=== PATIENT | female | born 1970 | race Two or more races ===

== ENCOUNTER 2024-07-21 08:23 | Inpatient (IN) | payer MEDICAID ==
[~2024-07-21] VITALS: Ht 162.6 cm; Wt 46.7 kg
[2024-07-21 09:23] LABS: COVID AG,FIA SOURCE NPH
[2024-07-21 09:41] LABS: SARS-COV2 (COVID) ANTIGEN,FIA Negative (Negative)
[2024-07-21] MEDS ORDERED: GuaiFENesin/D-METHORPHAN [SUGAR-FREE] 200-20MG/10 ML SYRUP UDCUP PO PRN (11:15)
[2024-07-21] MEDS ORDERED: HydrOXYzine PAMOATE 50 MG CAPSULE PO PRN (11:15)
[2024-07-21] MEDS ORDERED: LOPERAMIDE HCL 2 MG CAPSULE PO PRN (11:15)
[2024-07-21] MEDS ORDERED: MAG HYDROX/ALUMINUM HYD/SIMETH ES 30 ML SUSPENSION UDCUP PO PRN (11:15)
[2024-07-21] MEDS ORDERED: PROMETHAZINE HCL 25 MG TABLET PO PRN (11:15)
[2024-07-21] MEDS ORDERED: MAGNESIUM HYDROXIDE SUSPENSION 30 ML UDCUP PO PRN (11:15)
[2024-07-21] MEDS: DiphenhydrAMINE HCL 50 MG/ML VIAL IM ONE (11:29)
[2024-07-21] MEDS: HALOPERIDOL LACTATE 5 MG/ML VIAL IM ONE (11:29)
[2024-07-21] MEDS: LORazepam 2 MG/ML VIAL IM ONE (11:29)
[2024-07-21 13:00] LABS: BASOPHILS % (AUTO) 0.4 % (0.0-2.0); EOSINOPHILS % (AUTO) 2.2 % (1.0-6.0); HEMATOCRIT 34.4 % (36-46); HEMOGLOBIN 11.4 g/dL (12.0-16.0); LYMPHOCYTES # (AUTO) 1.6 K/uL (1.0-4.8); LYMPHOCYTES % (AUTO) 33.8 % (22.0-44.0); MEAN CORPUSCULAR HEMOGLOBIN 30.8 pg (26.0-34.0); MEAN CORPUSCULAR HGB CONC 33.2 G/dL (31.0-37.0); MEAN CORPUSCULAR VOLUME 93 fL (80-100); MONOCYTES # (AUTO) 0.3 K/uL (0.1-1.0); NEUTROPHILS # (AUTO) 2.8 K/uL (1.8-7.7); NEUTROPHILS % (AUTO) 57.6 % (40.0-70.0); PLATELET COUNT (AUTO) 228 K/uL (150-450); RED BLOOD CELL COUNT(AUTO) 3.71 MIL/uL (4.00-5.20); RED CELL DISTRIBUTION WIDTH 13.6 % (11.5-14.5); WHITE BLOOD COUNT (AUTO) 4.8 K/uL (4.5-11.0)
[2024-07-21 13:15] LABS: ALCOHOL, BLOOD (SERUM) < 3 mg/dL (0-10)
[2024-07-21 13:30] LABS: ANION GAP 5 mmol/L (8-16); CALCIUM, TOTAL 8.5 mg/dL (8.8-10.5); CARBON DIOXIDE 30 mmol/L (22-29); CHLORIDE 105 mmol/L (98-107); CREATININE 0.65 mg/dL (0.60-1.30); GLOMERULAR FILTR. RATE CALC > 60 mL/min (>60); SODIUM SERUM 140 mmol/L (136-145); UREA NITROGEN, BLOOD 12 mg/dL (7-18)
[2024-07-21 13:41] LABS: HCG,QUANTITATIVE 1 mIU/mL (0-6)
[2024-07-21 13:45] LABS: APPEARANCE,URINE HAZY (CLEAR); BILIRUBIN,URINE NEGATIVE (NEGATIVE); COLOR,URINE LIGHT YELLOW (YELLOW); GLUCOSE, URINE (UA) NEGATIVE (NEGATIVE); KETONES,URINE NEGATIVE (NEGATIVE); LEUKOCYTE ESTERASE ,URINE MODERATE (NEGATIVE); NITRATE,URINE NEGATIVE (NEGATIVE); OCCULT BLOOD,URINE TRACE (NEGATIVE); PH,URINE 6.5 (5.0-8.0); PH,URINE DRUG SCREEN 6.5 (5.0-8.0); PROTEIN,URINE NEGATIVE (NEGATIVE); UROBILINOGEN,URINE <=1.0 mg/dL (<=1.0)
[2024-07-21 13:47] LABS: GLUCOSE,RANDOM 84 mg/dL (70-110)
[2024-07-21 13:53] LABS: ALCOHOL, URINE DRUG SCREEN NEGATIVE (NEGATIVE); AMPHET/METH SCREEN,URINE POSITIVE (NEGATIVE); BARBITURATE SCREEN, URINE NEGATIVE (NEGATIVE); BENZODIAZEPINES SCREEN,URINE POSITIVE (NEGATIVE); CANNABINOID SCREEN,URINE POSITIVE (NEGATIVE); COCAINE SCREEN,URINE POSITIVE (NEGATIVE); METHADONE SCREEN, URINE NEGATIVE (NEGATIVE); OPIATE SCREEN,URINE NEGATIVE (NEGATIVE); PHENCYCLIDINE SCREEN,URINE NEGATIVE (NEGATIVE)
[2024-07-21 13:59] LABS: BACTERIA,URINE Few /HPF (None Seen); RBC,URINE 0-2 /HPF (0-2); SQUAMOUS EPITHELIAL CELL,UR Few /LPF (None Seen)
[2024-07-21] MEDS: OLANZapine 5 MG RAPDIS TABLET PO SCH (18:00)
[2024-07-21] MEDS: THIAMINE 100 MG TABLET PO SCH (18:02)
[2024-07-21 18:04] VITALS: O2SAT 99
[2024-07-21] MEDS: MELATONIN 5 MG TABLET PO SCH (20:08)
[2024-07-21 21:10] VITALS: BP 134/64; PULSE 64; RESP 18; TEMP 98.3; O2SAT 99
[2024-07-22 08:16] VITALS: BP 116/74; PULSE 68; RESP 16; TEMP 97.9; O2SAT 97
[2024-07-22] MEDS: FOLIC ACID 1 MG TABLET PO SCH (09:00)
[2024-07-22] MEDS: OMEGA-3/DHA/EPA/FISH OIL 1,000 MG CAPSULE PO SCH (09:00)
[2024-07-22] MEDS: NALTREXONE HCL 50 MG TABLET PO SCH (09:00)
[2024-07-22] MEDS: MULTIVITAMINS WITH MINERALS, THERAPEUTIC TABLET PO SCH (09:00)
[2024-07-22] MEDS ORDERED: HALOPERIDOL LACTATE 5 MG/ML VIAL ONE (12:41)
[2024-07-22] MEDS ORDERED: LORazepam 2 MG/ML VIAL ONE (12:41)
[2024-07-22] MEDS ORDERED: DiphenhydrAMINE HCL 50 MG/ML VIAL ONE (12:41)
[2024-07-22] MEDS: LORazepam 2 MG/ML VIAL IM ONE (12:59)
[2024-07-22] MEDS: HALOPERIDOL LACTATE 5 MG/ML VIAL IM ONE (12:59)
[2024-07-22] MEDS: DiphenhydrAMINE HCL 50 MG/ML VIAL IM ONE (12:59)
[2024-07-22 14:00] VITALS: BP 120/82; PULSE 70; RESP 16; O2SAT 98
[2024-07-22] MEDS: PALIPERIDONE PALMITATE 234 MG/1.5 ML SYRINGE IM ONE (16:00)
[2024-07-22 21:12] VITALS: BP 120/71; PULSE 72; RESP 18; TEMP 97.1; O2SAT 99
[2024-07-23 08:14] VITALS: BP 110/74; PULSE 79; RESP 18; TEMP 98; O2SAT 97
[2024-07-23] MEDS: DiphenhydrAMINE HCL 50 MG/ML VIAL IM ONE (12:06)
[2024-07-23] MEDS: LORazepam 2 MG/ML VIAL IM ONE (12:06)
[2024-07-23] MEDS: HALOPERIDOL LACTATE 5 MG/ML VIAL IM ONE (12:06)
[2024-07-23 13:06] VITALS: BP 108/64; PULSE 81; RESP 18; TEMP 97.8; O2SAT 98
[2024-07-23] MEDS: NITROFURANTOIN MONOHYD/M-CRYST 100 MG CAPSULE [MACROBID] PO SCH (16:41)
[2024-07-23 20:52] VITALS: BP 101/58; PULSE 74; RESP 17; TEMP 97.7; O2SAT 99
[2024-07-24 08:07] VITALS: RESP 18
[2024-07-24] MEDS: LORazepam 2 MG TABLET PO PRN (16:46)
[2024-07-24 20:23] VITALS: BP 115/69; PULSE 73; RESP 18; TEMP 98.1; O2SAT 95
[2024-07-25 08:44] VITALS: RESP 16
[2024-07-25 20:10] VITALS: RESP 18
[2024-07-26] MEDS ORDERED: PALIPERIDONE PALMITATE 156 MG/ML SYRINGE IM ONE (09:00)
[2024-07-26 09:16] VITALS: BP 102/64; PULSE 80; RESP 17; TEMP 98.1
[2024-07-26] MEDS ORDERED: HALOPERIDOL LACTATE 5 MG/ML VIAL ONE (09:40)
[2024-07-26] MEDS ORDERED: LORazepam 2 MG/ML VIAL ONE (09:40)
[2024-07-26] MEDS ORDERED: DiphenhydrAMINE HCL 50 MG/ML VIAL ONE (09:41)
[2024-07-26] MEDS: DiphenhydrAMINE HCL 50 MG/ML VIAL IM ONE (09:50)
[2024-07-26] MEDS: LORazepam 2 MG/ML VIAL IM ONE (09:51)
[2024-07-26] MEDS: HALOPERIDOL LACTATE 5 MG/ML VIAL IM ONE (09:51)
[2024-07-26 23:30] VITALS: RESP 20
[2024-07-27] MEDS ORDERED: DiphenhydrAMINE HCL 50 MG/ML VIAL ONE (10:22)
[2024-07-27] MEDS ORDERED: HALOPERIDOL LACTATE 5 MG/ML VIAL ONE (10:22)
[2024-07-27] MEDS ORDERED: LORazepam 2 MG/ML VIAL ONE (10:22)
[2024-07-27] MEDS: INFLUENZA VIRUS VACCINE TVS (6MO+) 2024-25/PF 45 MCG/0.5 ML SYRINGE IM. ONE (10:35)
[2024-07-27] MEDS: DiphenhydrAMINE HCL 50 MG/ML VIAL IM ONE (10:39)
[2024-07-27] MEDS: HALOPERIDOL LACTATE 5 MG/ML VIAL IM ONE (10:39)
[2024-07-27] MEDS: LORazepam 2 MG/ML VIAL IM ONE (10:39)
[2024-07-27 12:00] VITALS: RESP 18
[2024-07-28 08:16] VITALS: BP 129/76; PULSE 91; RESP 18; TEMP 98; O2SAT 99
[2024-07-28] MEDS: OLANZapine 5 MG RAPDIS TABLET PO SCH (16:57)
[2024-07-29 08:31] VITALS: BP 110/67; PULSE 76; RESP 18; TEMP 97.1; O2SAT 97
[2024-07-29] MEDS: LORazepam 2 MG/ML VIAL IM ONE (15:09)
[2024-07-29] MEDS: DiphenhydrAMINE HCL 50 MG/ML VIAL IM ONE (15:09)
[2024-07-29] MEDS: HALOPERIDOL LACTATE 5 MG/ML VIAL IM ONE (15:10)
[2024-07-29 17:30] VITALS: RESP 18
[2024-07-29] MEDS: ACETAMINOPHEN 325 MG TABLET PO PRN (17:36)
[2024-07-29 18:27] VITALS: RESP 18
[2024-07-29] MEDS: DIVALPROEX SODIUM 500 MG ER TABLET PO SCH (20:14)
[2024-07-29 20:28] VITALS: BP 108/73; PULSE 79; RESP 16; TEMP 97.1; O2SAT 97
[2024-07-29] MEDS: ZOLPIDEM TARTRATE 10 MG TABLET PO PRN (20:55)
[2024-07-30 08:34] VITALS: BP 120/78; PULSE 79; RESP 18; TEMP 97.9; O2SAT 96
[2024-07-30] MEDS: OLANZapine 5 MG RAPDIS TABLET PO PRN (11:38)
[2024-07-30] MEDS: OLANZapine 5 MG RAPDIS TABLET PO SCH (20:06)
[2024-07-30 22:59] VITALS: RESP 16
[2024-07-31 08:16] VITALS: BP 113/76; PULSE 79; RESP 16; TEMP 98; O2SAT 96
[2024-07-31 22:59] VITALS: BP 99/58; PULSE 77; RESP 18; TEMP 97.7; O2SAT 96
[2024-08-01 08:30] VITALS: RESP 18
[2024-08-02] MEDS: PALIPERIDONE PALMITATE 156 MG/ML SYRINGE IM ONE (08:58)
[2024-08-02 09:56] VITALS: BP 118/82; PULSE 82; RESP 18; TEMP 97.1; O2SAT 98
[2024-08-03 08:50] VITALS: BP 103/61; PULSE 78; RESP 17; TEMP 97.1; O2SAT 97
[2024-08-03 20:17] VITALS: BP 99/61; PULSE 79; RESP 18; TEMP 98; O2SAT 98
[2024-08-04 08:46] VITALS: BP 128/76; PULSE 100; RESP 16; TEMP 98; O2SAT 96
[2024-08-05 08:40] VITALS: RESP 16
[2024-08-05 20:07] VITALS: BP 117/66; PULSE 85; RESP 18; TEMP 98
[2024-08-05] MEDS ORDERED: GABAPENTIN 300 MG CAPSULE PO PRN (23:00)
[2024-08-05] MEDS ORDERED: ESZOPICLONE 3 MG TABLET PO PRN (23:00)
[2024-08-06 09:12] VITALS: BP 100/60; PULSE 68; RESP 16; TEMP 96.2; O2SAT 96
[2024-08-06 20:26] VITALS: RESP 16
[2024-08-07 08:09] VITALS: BP 121/74; PULSE 82; RESP 16; TEMP 97.6; O2SAT 97
[2024-08-07] MEDS ORDERED: NALTREXONE HCL 50 MG TABLET PO PRN (12:30)
[2024-08-07] MEDS: OLANZapine 10 MG RAPDIS TABLET PO SCH (20:28)
[2024-08-07 22:48] VITALS: BP 95/58; PULSE 70; RESP 16; TEMP 97.3; O2SAT 98
[2024-08-08 08:26] VITALS: BP 100/60; PULSE 94; RESP 16; TEMP 97.3; O2SAT 98
[2024-08-08] MEDS ORDERED: PALI117D IM (15:14)
[2024-08-08] MEDS ORDERED: NALT50TA33 PO (15:14)
[2024-09-04] MEDS ORDERED: PALIPERIDONE PALMITATE 117 MG/0.75 ML SYRINGE IM SCH (09:00)
== END 2024-08-08 17:56 | disposition home or self-care (01) | DRG 750 ==
LOC: EMS 08:23 → B3A 17:44 → EDBD 17:44
PROVIDERS: ADMIT Psychiatry & Neurology Psychiatry; ATTEND Psychiatry & Neurology Psychiatry
PROC: GZHZZZZ Group Psychotherapy (ICD-10-PCS; principal; 2024-07-22)
PROC: GZ58ZZZ Individual Psychotherapy, Cognitive-Behavioral (ICD-10-PCS; 2024-07-22)
DX: F25.9 Schizoaffective disorder, unspecified (principal); Z91.148 Patient's other noncompliance with medication regimen for other reason; F17.200 Nicotine dependence, unspecified, uncomplicated; Z20.822 Contact with and (suspected) exposure to COVID-19; Z59.00 Homelessness unspecified
CPT/HCPCS: 80048; 80164; 80307; 81001; 84702; 85025; 87077; 87086; 87186; 99285; G0480; J1200; J1630; J2060